=== PATIENT | male | born 1970 | race Caucasian/White ===

== ENCOUNTER → 2022-10-15 | Outpatient (CLI) | payer BC ==
[~2022-10-15] MED LIST: ALBU90OI INH; AZIT250 PO; BENZ100A PO; Excedrin Extra1 EACH PO; IBUP800 PO; MECL25 PO; Zofran Odt4 MG SL
[2022-10-18 00:08] LABS: CHLAMYDIA TRACHOMATIS, NAA Negative (Negative)
== END | disposition home or self-care (01) ==
LOC: LAB SHORT 15:59 → LAB 15:59
PROVIDERS: Physician Assistant
DX: N50.812 Left testicular pain (principal)
CPT/HCPCS: 87491; 87591